=== PATIENT | male | born 1970 | race Caucasian/White ===

== ENCOUNTER 2020-02-04 13:49 | Outpatient (CLI) | payer OTHER ==
[~2020-02-04 13:49] MED LIST: ACHYD1T PO
== END 2020-02-04 14:06 | disposition home or self-care (01) ==
LOC: SLEEP 13:49
PROVIDERS: ATTEND Nurse Practitioner
DX: G47.33 Obstructive sleep apnea (adult) (pediatric) (principal); I10 Essential (primary) hypertension; Z90.49 Acquired absence of other specified parts of digestive tract